=== PATIENT | female | born 1985 | race African-American/Black ===

== ENCOUNTER 2017-07-05 15:53 | Emergency (ER) | payer OTHER ==
[~2017-07-05] VITALS: Ht 157.5 cm; Wt 72.6 kg
[2017-07-05 16:28] VITALS: BP 132/72
== END 2017-07-05 16:29 | disposition home or self-care (01) ==
LOC: FSED 15:53
DX: N93.9 Abnormal uterine and vaginal bleeding, unspecified (principal); N92.4 Excessive bleeding in the premenopausal period
CPT/HCPCS: 85025; 99283